=== PATIENT | male | born 1955 | race Two or more races ===

== ENCOUNTER 2018-08-14 07:55 | Inpatient (IN) | payer OTHER ==
[~2018-08-14] VITALS: Ht 182.9 cm; Wt 112.0 kg
[2018-08-14] MEDS ORDERED: SODIUM CHLORIDE 0.9% 1,000 ML IV ONE (08:39)
[2018-08-14] MEDS ORDERED: KETOROLAC TROMETH 30 MG/ML 1ML VIAL IV ONE ×2 (08:45→14:15)
[2018-08-14 09:02] LABS: Basophils # (auto) 0 uL; Basophils % (auto) 0.2 % (0.0-2.0); Eosinophils # (auto) 0.1 uL; Eosinophils % (auto) 1.4 % (0.0-7.0); Hematocrit 42.2 % (41.0-53.0); Hemoglobin 14.8 g/dL (13.5-17.5); Lymphocytes # (auto) 0.9 uL; Lymphocytes % (auto) 10.1 % (10.0-50.0); Mean Corpuscular Hemoglobin 31.6 pg (28.0-32.0); Mean Corpuscular Hgb Conc. 35.1 g/dL (32.0-36.0); Mean Corpuscular Volume 89.9 fL (80.0-100.0); Monocytes # (auto) 1.1 uL; Monocytes % (auto) 12.4 % (0.0-12.0); Neutrophils # (auto) 6.5 uL; Neutrophils % (auto) 75.9 % (37.0-80.0); Nucleated Red Blood Cells % 0.1 %; Platelet Count (auto) 254 10^3/uL (140-450); Red Blood Cells 4.69 10^6/uL (4.5-5.90); Red Cell Distribution Width 13.2 % (11.8-14.3); White Blood Cell 8.5 10^3/uL (4.4-10.8)
[2018-08-14 09:09] LABS: Albumin 3.7 g/dL (3.4-5.0); Potassium 3.8 mmol/L (3.5-5.1)
[2018-08-14 09:12] LABS: Bilirubin, Total 0.8 mg/dL (0.2-1.0)
[2018-08-14] MEDS: PROMETHAZINE HCL 25 MG/ML 1ML IV PRN ×2 (09:17→21:13)
[2018-08-14 09:41] LABS: Urine Bacteria NONE SEEN /hpf (None Seen); Urine Blood Negative /uL (Negative); Urine Hyaline Cast FEW /lpf (0 - 2); Urine Mucus FEW (None Seen); Urine Specific Gravity 1.036 (1.001-1.035); Urine WBC 1 /hpf (0 - 3)
[2018-08-14] MEDS ORDERED: IOHEXOL 300 MG/ML 100ML BOTTLE IJ ONE (10:01)
[2018-08-14 11:50] LABS: BUN/Creatinine Ratio 16.3
[2018-08-14] MEDS ORDERED: cefTRIAXone 1GM/50ML D5W 50 ML IV ONE ×2 (14:00→14:30)
[2018-08-14] MEDS ORDERED: FENO160T8 PO (14:18)
[2018-08-14] MEDS ORDERED: ALLO-52 PO (14:18)
[2018-08-14] MEDS ORDERED: ATE50T PO (14:18)
[2018-08-14] MEDS ORDERED: LOSA100T25 PO (14:18)
[2018-08-14] MEDS ORDERED: VITD (14:18)
[2018-08-14] MEDS ORDERED: PANT40T PO (14:18)
[2018-08-14] MEDS ORDERED: PROMETHAZINE HCL 25 MG/ML 1ML IV PRN (14:30)
[2018-08-14] MEDS ORDERED: NITROGLYCERIN 0.4 MG SL TAB SL PRN (14:30)
[2018-08-14] MEDS ORDERED: LORazepam 2MG/ML-1ML VIAL IV PRN (14:30)
[2018-08-14] MEDS ORDERED: MORPHINE SULFATE 10 MG/ML INJ 1ML SDV IV PRN ×2 (14:30)
[2018-08-14] MEDS: SODIUM CHLORIDE 0.9% 1,000 ML IV SCH ×2 (15:15→22:29)
[2018-08-14] MEDS: metroNIDAZOLE 500MG/100ML 100 ML IV SCH ×2 (18:14→23:58)
[2018-08-14 20:00] VITALS: BP 145/78
[2018-08-14] MEDS ORDERED: ALLO300T2 PO (20:51)
[2018-08-14] MEDS ORDERED: LOSA100T33 PO (20:51)
[2018-08-14] MEDS ORDERED: PANT40TA2 PO (20:53)
[2018-08-14] MEDS: ACETAMINOPHEN 325 MG TAB PO PRN (21:04)
[2018-08-14] MEDS: MORPHINE SULFATE 10 MG/ML INJ 1ML SDV IV PRN (21:05)
[2018-08-14 22:00] VITALS: BP 145/78
[2018-08-15] MEDS: ACETAMINOPHEN 325 MG TAB PO PRN (04:44)
[2018-08-15 05:00] VITALS: BP 142/71
[2018-08-15] MEDS: metroNIDAZOLE 500MG/100ML 100 ML IV SCH ×4 (05:30→23:57)
[2018-08-15 05:33] LABS: Basophils # (auto) 0 uL; Basophils % (auto) 0.4 % (0.0-2.0); Eosinophils # (auto) 0.1 uL; Eosinophils % (auto) 0.5 % (0.0-7.0); Hemoglobin 14.4 g/dL (13.5-17.5); Lymphocytes # (auto) 0.6 uL; Lymphocytes % (auto) 5.5 % (10.0-50.0); Mean Corpuscular Hemoglobin 32.4 pg (28.0-32.0); Monocytes % (auto) 9.9 % (0.0-12.0); Neutrophils # (auto) 8.6 uL; Neutrophils % (auto) 83.7 % (37.0-80.0); Nucleated Red Blood Cells % 0.3 %; Platelet Count (auto) 228 10^3/uL (140-450); Red Blood Cells 4.45 10^6/uL (4.5-5.90); Red Cell Distribution Width 13.3 % (11.8-14.3); White Blood Cell 10.3 10^3/uL (4.4-10.8)
[2018-08-15 05:50] LABS: Albumin 3.2 g/dL (3.4-5.0); BUN/Creatinine Ratio 14.7; Calcium 8.2 mg/dL (8.5-10.1); Potassium 3.4 mmol/L (3.5-5.1)
[2018-08-15 05:54] LABS: Bilirubin, Total 1.8 mg/dL (0.2-1.0); Total Protein 6.6 g/dL (6.4-8.2)
[2018-08-15] MEDS: SODIUM CHLORIDE 0.9% 1,000 ML IV SCH ×2 (06:01→15:43)
[2018-08-15 08:34] VITALS: BP 121/76
[2018-08-15 09:04] LABS: INR 1.13 (0.9-1.15)
[2018-08-15] MEDS: cefTRIAXone 1GM/50ML D5W 50 ML IV SCH (09:54)
[2018-08-15] MEDS: PANTOPRAZOLE 40 MG TAB PO SCH ×2 (09:54→09:57)
[2018-08-15] MEDS: ENOXAPARIN SOD 40 MG/0.4 ML SYRINGE SC SCH (09:57)
[2018-08-15] MEDS ORDERED: PANTOPRAZOLE 40 MG/10 ML VIAL IV SCH (10:00)
[2018-08-15] MEDS ORDERED: POVIDONE IODINE 10 % TOPICAL OINT 30GM TOP ONE (11:05)
[2018-08-15] MEDS ORDERED: SUCCINYLCHOLINE CHLORIDE 20 MG/ML 10ML VIAL IV ONE (11:13)
[2018-08-15] MEDS ORDERED: fentaNYL CITRATE 100 MCG/2 ML VL ONE (11:25)
[2018-08-15] MEDS ORDERED: MIDAZOLAM HCL 1MG/1ML-2 ML VIAL ONE (11:25)
[2018-08-15] MEDS ORDERED: MEPERIDINE HCL (50 MG/ML) 1 ML VIAL ONE (11:25)
[2018-08-15] MEDS ORDERED: ETOMIDATE (2MG/ML) 20ML VIAL IV ONE (11:39)
[2018-08-15] MEDS ORDERED: DEXAMETHASONE SOD PHOS 10MG/1ML VIAL INJ ONE (11:39)
[2018-08-15] MEDS ORDERED: ROCURONIUM 10MG/ML 10ML VIAL IV ONE (11:40)
[2018-08-15] MEDS ORDERED: MORPHINE SULFATE 10 MG/ML INJ 1ML SDV IV PRN (12:00)
[2018-08-15] MEDS ORDERED: MORPHINE SULFATE 10 MG/ML INJ 1ML SDV IV ONE (12:00)
[2018-08-15] MEDS ORDERED: LABETALOL HCL 5 MG/ML 4ML SYRINGE IV PRN (12:00)
[2018-08-15] MEDS ORDERED: MIDAZOLAM HCL 1MG/1ML-2 ML VIAL IV PRN (12:00)
[2018-08-15] MEDS ORDERED: ePHEDrine SULFATE 50 MG/ML AMP IV PRN (12:00)
[2018-08-15] MEDS ORDERED: ONDANSETRON HCL 4 MG/2 ML VIAL IV ONE (12:00)
[2018-08-15] MEDS: KETOROLAC TROMETH 30 MG/ML 1ML VIAL IV ONE ×2 (13:15→15:42)
[2018-08-15] MEDS: HYDROmorphone HCL 2 MG/ML VL IV PRN ×2 (13:15→13:25)
[2018-08-15] MEDS: MORPHINE SULFATE 10 MG/ML INJ 1ML SDV IV PRN ×3 (14:35→23:01)
[2018-08-15] MEDS ORDERED: POTASSIUM CHL 20 Meq TABLET PO ONE (15:30)
[2018-08-15 16:24] VITALS: BP 109/76
[2018-08-15 22:00] VITALS: BP 111/81
[2018-08-16] MEDS: MORPHINE SULFATE 10 MG/ML INJ 1ML SDV IV PRN (03:49)
[2018-08-16 05:00] VITALS: BP 132/72
[2018-08-16] MEDS: SODIUM CHLORIDE 0.9% 1,000 ML IV SCH ×2 (05:40→14:45)
[2018-08-16] MEDS: metroNIDAZOLE 500MG/100ML 100 ML IV SCH ×4 (05:41→23:45)
[2018-08-16 06:20] LABS: Basophils # (auto) 0 uL; Basophils % (auto) 0.1 % (0.0-2.0); Eosinophils # (auto) 0 uL; Hematocrit 36.6 % (41.0-53.0); Hemoglobin 12.7 g/dL (13.5-17.5); Lymphocytes # (auto) 0.6 uL; Mean Corpuscular Hemoglobin 31.6 pg (28.0-32.0); Mean Corpuscular Hgb Conc. 34.7 g/dL (32.0-36.0); Mean Corpuscular Volume 91.2 fL (80.0-100.0); Monocytes # (auto) 1.3 uL; Monocytes % (auto) 8.7 % (0.0-12.0); Neutrophils # (auto) 13.2 uL; Neutrophils % (auto) 87.2 % (37.0-80.0); Nucleated Red Blood Cells % 0.1 %; Platelet Count (auto) 285 10^3/uL (140-450); Red Blood Cells 4.02 10^6/uL (4.5-5.90); Red Cell Distribution Width 13.4 % (11.8-14.3); White Blood Cell 15.2 10^3/uL (4.4-10.8)
[2018-08-16 06:39] LABS: Albumin 3.1 g/dL (3.4-5.0); Calcium 8.7 mg/dL (8.5-10.1); Magnesium 2.3 mg/dL (1.6-2.6); Potassium 3.9 mmol/L (3.5-5.1)
[2018-08-16 06:44] LABS: BUN/Creatinine Ratio 23.3; Bilirubin, Total 1.6 mg/dL (0.2-1.0); Total Protein 6.6 g/dL (6.4-8.2)
[2018-08-16] MEDS: cefTRIAXone 1GM/50ML D5W 50 ML IV SCH (08:54)
[2018-08-16 09:00] VITALS: BP 133/85
[2018-08-16] MEDS: PANTOPRAZOLE 40 MG TAB PO SCH (10:35)
[2018-08-16] MEDS: ENOXAPARIN SOD 40 MG/0.4 ML SYRINGE SC SCH (10:35)
[2018-08-16 13:00] VITALS: BP 144/88
[2018-08-16] MEDS ORDERED: MORPHINE SULFATE 4 MG/ML SYR/VIAL IV PRN (15:00)
[2018-08-16 16:26] VITALS: BP 140/82
[2018-08-16 20:00] VITALS: BP 129/86
[2018-08-16 22:00] VITALS: BP 129/86
[2018-08-16] MEDS: ACETAMINOPHEN 325 MG TAB PO PRN (23:27)
[2018-08-17 05:00] VITALS: BP 131/92
[2018-08-17 05:31] LABS: Basophils # (auto) 0 uL; Basophils % (auto) 0.1 % (0.0-2.0); Eosinophils # (auto) 0.1 uL; Eosinophils % (auto) 0.4 % (0.0-7.0); Hematocrit 33.4 % (41.0-53.0); Hemoglobin 11.7 g/dL (13.5-17.5); Lymphocytes # (auto) 1.3 uL; Lymphocytes % (auto) 10.1 % (10.0-50.0); Mean Corpuscular Hemoglobin 31.8 pg (28.0-32.0); Mean Corpuscular Hgb Conc. 34.9 g/dL (32.0-36.0); Monocytes # (auto) 0.8 uL; Monocytes % (auto) 6.6 % (0.0-12.0); Neutrophils # (auto) 10.6 uL; Neutrophils % (auto) 82.8 % (37.0-80.0); Platelet Count (auto) 326 10^3/uL (140-450); Red Blood Cells 3.67 10^6/uL (4.5-5.90); Red Cell Distribution Width 13.2 % (11.8-14.3); White Blood Cell 12.8 10^3/uL (4.4-10.8)
[2018-08-17 05:54] LABS: Albumin 2.9 g/dL (3.4-5.0); Calcium 8.1 mg/dL (8.5-10.1); Potassium 3.8 mmol/L (3.5-5.1)
[2018-08-17 05:57] LABS: BUN/Creatinine Ratio 19.6; Bilirubin, Total 0.7 mg/dL (0.2-1.0)
[2018-08-17] MEDS: metroNIDAZOLE 500MG/100ML 100 ML IV SCH ×2 (06:32→12:03)
[2018-08-17] MEDS: SODIUM CHLORIDE 0.9% 1,000 ML IV SCH (07:25)
[2018-08-17 09:07] VITALS: BP 149/85
[2018-08-17] MEDS: ENOXAPARIN SOD 40 MG/0.4 ML SYRINGE SC SCH (09:36)
[2018-08-17] MEDS: cefTRIAXone 1GM/50ML D5W 50 ML IV SCH (09:36)
[2018-08-17] MEDS: PANTOPRAZOLE 40 MG TAB PO SCH (09:36)
[2018-08-17 12:55] VITALS: BP 137/82
[2018-08-17] MEDS ORDERED: LEVO500T21 PO (14:18)
[2018-08-17] MEDS ORDERED: METR500T PO (14:18)
[2018-08-17 15:18] VITALS: BP 137/82
== END 2018-08-17 16:33 | disposition home or self-care (01) | DRG 854 ==
LOC: ER 07:55 → TELE 14:45 → TELE-WESTW 17:37
PROVIDERS: ADMIT Internal Medicine; ATTEND Internal Medicine
PROC: 0FT44ZZ Resection of Gallbladder, Percutaneous Endoscopic Approach (ICD-10-PCS; principal; 2018-08-15 11:15)
DX: A41.9 Sepsis, unspecified organism (principal); K80.00 Calculus of gallbladder with acute cholecystitis without obstruction; M48.56XA Collapsed vertebra, not elsewhere classified, lumbar region, initial encounter for fracture; K21.9 Gastro-esophageal reflux disease without esophagitis; K44.9 Diaphragmatic hernia without obstruction or gangrene; I10 Essential (primary) hypertension; E87.6 Hypokalemia; M10.9 Gout, unspecified; E66.01 Morbid (severe) obesity due to excess calories; I25.10 Atherosclerotic heart disease of native coronary artery without angina pectoris; K40.90 Unilateral inguinal hernia, without obstruction or gangrene, not specified as recurrent; K76.0 Fatty (change of) liver, not elsewhere classified; M51.36 Other intervertebral disc degeneration, lumbar region; Z80.0 Family history of malignant neoplasm of digestive organs; Z82.49 Family history of ischemic heart disease and other diseases of the circulatory system; Z90.49 Acquired absence of other specified parts of digestive tract; Z79.899 Other long term (current) drug therapy; Z68.33 Body mass index [BMI] 33.0-33.9, adult; Z86.010 Personal history of colon polyps
CPT/HCPCS: 36415; 71045; 74177; 76705; 80053; 80061; 81001; 82150; 83690; 83735; 85025; 85610; 85652; 85730; 86141; 86850; 86900; 86901; 87040; 93005; 94761; 96365; 96375; 96376; A6257; G0378; J0330; J0696; J1100; J1885; J2250; J3490

== ENCOUNTER → 2018-08-25 | Outpatient (CLI) | payer OTHER ==
[~2018-08-25] MED LIST: ALLO300T2 PO; ATE50T PO; FENO160T8 PO; LEVO500T21 PO; LOSA100T33 PO; METR500T PO; PANT40TA2 PO; VITD
[2018-08-25 10:55] LABS: Basophils # (auto) 0.1 uL; Eosinophils # (auto) 0.3 uL; Lymphocytes # (auto) 1.4 uL
[2018-08-25 10:58] LABS: Basophils % (auto) 0.8 % (0.0-2.0); Eosinophils % (auto) 3.8 % (0.0-7.0); Hematocrit 40.8 % (41.0-53.0); Hemoglobin 13.8 g/dL (13.5-17.5); Lymphocytes % (auto) 17.8 % (10.0-50.0); Mean Corpuscular Hemoglobin 30.9 pg (28.0-32.0); Mean Corpuscular Hgb Conc. 33.8 g/dL (32.0-36.0); Mean Corpuscular Volume 91.2 fL (80.0-100.0); Monocytes # (auto) 0.8 uL; Neutrophils % (auto) 66.6 % (37.0-80.0); Platelet Count (auto) 531 10^3/uL (140-450); Red Blood Cells 4.47 10^6/uL (4.5-5.90); Red Cell Distribution Width 13.3 % (11.8-14.3); White Blood Cell 7.6 10^3/uL (4.4-10.8)
== END | disposition home or self-care (01) ==
LOC: LAB 10:33
DX: D72.819 Decreased white blood cell count, unspecified (principal)
CPT/HCPCS: 36415; 85025